=== PATIENT | male | born 2000 | race African-American/Black ===

== ENCOUNTER 2020-03-18 06:37 | Inpatient (IN) ==
[2020-03-18] MEDS ORDERED: Haloperidol 5 mg/ml SDV IV/IM 5 MG/ML AMP ONE (06:40)
[2020-03-18] MEDS ORDERED: diPHENhydraMINE IV 50 MG/ML 1 ml VIAL (BENADRYL) ONE (06:40)
[2020-03-18] MEDS ORDERED: LORazepam 2 mg VIAL 1 ml ONE (06:40)
[2020-03-18] MEDS ORDERED: diPHENhydraMINE IV 50 MG/ML 1 ml VIAL (BENADRYL) IM ONE (08:06)
[2020-03-18] MEDS ORDERED: Haloperidol 5 mg/ml SDV IV/IM 5 MG/ML AMP IM ONE (08:06)
[2020-03-18] MEDS ORDERED: LORazepam 2 mg VIAL 1 ml IM ONE (08:06)
[2020-03-18 08:52] LABS: ABS Lymphocytes 1.4 10^3/ul (1.0-4.8); ABS Monocytes 1.1 10^3/ul (0-0.8); Eosinophil % 0.2 %; Hematocrit 38 % (42-52); Hemoglobin 13.2 g/dL (14.0-18.0); Lymphocyte % 10.1 %; Mean Corpuscular HGB Conc 34 g/dL (31-36); Mean Corpuscular Hemoglobin 30 pg (27-31); Mean Corpuscular Volume 88 fL (80-94); Mean Platelet Volume 8.5 fL (7.4-10.4); Nucleated Red Blood Cells % 0.1; Platelet Count 194 10^3/uL (150-450); Red Blood Count 4.39 10^6 /uL (4.18-5.48); Red Cell Distribution Width 13 % (10-15)
[2020-03-18 09:03] LABS: ALT 22 U/L (7-52); AST 33 U/L (13-39); Acetaminophen < 15 mcg/mL; Albumin 4.5 g/dL (3.2-5.2); Albumin/Globulin Ratio 1.4 (1-3); Alcohol, S < 10 mg/dL (<10); Alkaline Phosphatase 53 U/L (34-104); Anion Gap 14 mmol/L (2-11); BUN/Creatinine Ratio 14.6 (8-20); Blood Urea Nitrogen 18 mg/dL (6-24); CO2 Carbon Dioxide 21 mmol/L (22-32); Calcium 9.4 mg/dL (8.6-10.3); Chloride 99 mmol/L (101-111); EGFR African American 89.9 (>60); EGFR Non-African American 74.3 (>60); Globulin 3.2 g/dL (2-4); Glucose 85 mg/dL (70-100); Potassium 3.3 mmol/L (3.5-5.0); Salicylate < 2.50 mg/dL (<30); Sodium 134 mmol/L (135-145); Total Protein 7.7 g/dL (6.4-8.9)
[2020-03-18 09:19] LABS: TSH (Thyroid Stimulating Horm) 0.43 mcIU/mL (0.34-5.60)
[2020-03-18 09:39] LABS: Urine Appearance Cloudy; Urine Bilirubin Negative (Negative); Urine Blood 1+ (Negative); Urine Color Yellow; Urine Glucose Negative (Negative); Urine Ketones 2+ (Negative); Urine Nitrite Negative (Negative); Urine Protein 2+(100 mg/dL) (Negative); Urine Specific Gravity 1.025 (1.010-1.030); Urine Urobilinogen Negative (Negative)
[2020-03-18 09:48] LABS: Urine Bacteria Absent (Absent); Urine Red Blood Cell Absent (Absent); Urine Squamous Epithelial Cell Present (Absent); Urine White Blood Cell Trace(0-5/hpf) (Absent)
[2020-03-18 09:52] LABS: Urine Benzodiazepine Screen None Detected (None Detect); Urine Opiates Screen None Detected (None Detect)
[2020-03-18] MEDS ORDERED: Al Hydrox/Mg Hydrox/Simet LIQ 30 ML UDC PO PRN (14:49)
[2020-03-18] MEDS: LORazepam 1 mg TAB (*) PO PRN (18:51)
[2020-03-19 08:36] LABS: HDL Cholesterol 45.8 mg/dL
[2020-03-19] MEDS: OLANzapine 5 mg TAB*ODT PO SCH ×2 (11:48→20:56)
[2020-03-19] MEDS: VALPROIC ACID 250 MG PO SCH ×2 (14:45→20:56)
[2020-03-19] MEDS: LORazepam 1 mg TAB (*) PO PRN (20:59)
[2020-03-20] MEDS: LORazepam 1 mg TAB (*) PO PRN (06:55)
[2020-03-20] MEDS: OLANzapine 5 mg TAB*ODT PO SCH (08:33)
[2020-03-20] MEDS: VALPROIC ACID 250 MG PO SCH ×2 (08:33→19:58)
[2020-03-20] MEDS ORDERED: DIAZEPAM 10 MG PO SCH (21:00)
[2020-03-21] MEDS: VALPROIC ACID 250 MG PO SCH ×2 (11:29→20:26)
[2020-03-22] MEDS ORDERED: LORazepam 1 mg TAB (*) PO ONE (02:38)
[2020-03-22] MEDS ORDERED: LORazepam 1 mg TAB (*) ONE (02:44)
[2020-03-22] MEDS: VALPROIC ACID 250 MG PO SCH (07:42)
[2020-03-22 08:06] VITALS: BP 130/80
== END 2020-03-22 13:30 | disposition home or self-care (01) | DRG 885 ==
LOC: ED 06:37 → BSU 14:49
PROVIDERS: ADMIT Psychiatry & Neurology Psychiatry; ATTEND Psychiatry & Neurology Psychiatry